=== PATIENT | male | born 1955 | race Caucasian/White ===

== ENCOUNTER → 2018-11-17 08:44 | Outpatient (CLI) | payer OTHER, SELFPAY ==
[2018-11-17 09:59] LABS: Cholesterol 175 mg/dL (140-199); Glucose 97 mg/dL (80-110); HDL Cholesterol 53 mg/dL (40-60); LDL Cholesterol Calculated 112 mg/dL (<100); Triglycerides 49 mg/dL (35-150)
[2018-11-17 10:28] LABS: Prostate Specific Antigen Scrn 0.399 ng/mL (0.1-4.0)
[2018-11-17 10:58] LABS: Hep C Virus Ab w/Reflex Quant NEGATIVE s/c (NEGATIVE)
== END ==
PROVIDERS: PCP Internal Medicine; Visit Provider Internal Medicine
DX: Z00.01 Encounter for general adult medical examination with abnormal findings (principal)
CPT/HCPCS: 36415; 80061; 82947; 86803; G0103

== ENCOUNTER → 2023-04-29 11:31 | Outpatient (CLI) | payer MEDICARE, SELFPAY ==
--- NOTE | 2023-04-29 11:38 | DI.US.S_ITS ---
PROCEDURE: US PERIPH VENOUS LOW EXTREM LT INDICATIONS: LEFT LOWER EXTREMITY EDEMA, R/O DVT TECHNIQUE: Real-time imaging, as well as color and pulse Doppler interrogation, were performed of the lower extremity deep veins from the inguinal ligament to the popliteal fossa, with documentation of the visualized calf veins. COMPARISON: None. FINDINGS: The common femoral, femoral, popliteal, and the visualized calf veins are normally compressible, and free of intraluminal thrombus. Color and pulse Doppler demonstrate normal phasic intraluminal flow. There is normal augmentation response to distal compression maneuver. Superficial venous thrombosis is seen within the greater saphenous vein from the level of the knee to the level of the ankle, greater than 5 cm from the saphenofemoral junction. IMPRESSION: Superficial venous thrombosis can be seen within the distal greater saphenous vein from the level of the knee to the ankle. No elysia findings of deep venous thrombosis can be seen. Note: Concordant preliminary findings given by the food service team member upon the completion of the examination to Pari Rios PA-C. Dictated by: Joseph De León M.D. on 04/29/2023 at 11:47 Approved by: Joseph De León M.D. on 04/29/2023 at 11:49
== END ==
PROVIDERS: PCP Internal Medicine; Referring Provider Physician Assistant; Visit Provider Physician Assistant
DX: I82.812 Embolism and thrombosis of superficial veins of left lower extremity (principal); M79.89 Other specified soft tissue disorders
CPT/HCPCS: 36415; 80053; 85025; 93971

== ENCOUNTER → 2023-04-29 14:00 | Outpatient (CLI) | payer MEDICARE, SELFPAY ==
[2023-04-29 14:29] LABS: Add Manual Diff / Slide Review NO; Basophils Absolute Auto 0 /uL (0-100); Basophils Percent Auto 0.3 % (0-2); Eosinophils Absolute Auto 200 /uL (0-450); Eosinophils Percent Auto 2.6 % (2-4); Hematocrit 34.5 % (41-53); Hemoglobin 11.7 g/dL (13.5-17.5); Lymphocytes Absolute Auto 1400 /uL (1100-4500); Lymphocytes Percent Auto 20.3 % (25-40); Mean Corpuscular HGB Conc 33.9 % (30-36); Mean Corpuscular Hemoglobin 33.1 PG (26-34); Mean Corpuscular Volume 97.6 fL (80-100); Monocytes Absolute Auto 800 /uL (0-900); Monocytes Percent Auto 11.2 % (3-14); Neutrophils Absolute Auto 4600 /uL (1500-7000); Neutrophils Percent Auto 65.6 % (50-75); Platelet Count 269 X10^3/uL (150-400); Red Blood Cell Count 3.53 X10^6/uL (4.5-5.9); Red Cell Distribution Width 12.2 % (11.6-14.8)
[2023-04-29 14:41] LABS: Alanine Aminotransferase 31 IU/L (<50); Albumin Globulin Ratio 1.3 (1.0-2.8); Alkaline Phosphatase 62 U/L (38-126); Aspartate Aminotransferase 29 IU/L (17-59); BUN Creatinine Ratio 16.9 (6-22); Bilirubin Total 0.5 mg/dL (0.2-1.3); Blood Urea Nitrogen 13 mg/dL (9-20); Carbon Dioxide 26 mmol/L (22-32); Chloride 105 mmol/L (98-107); Estimated Glomerular Filt Rate > 60 mL/min (>60); Globulin 3.2 g/dL (1.7-4.1); Glucose 93 mg/dL (80-110); HEMOLYSIS < 15 (0-50); Potassium 4.5 mmol/L (3.4-5.1); Sodium 140 mmol/L (137-145); Total Protein 7.2 g/dL (6.3-8.2)
== END ==
PROVIDERS: PCP Student in an Organized Health Care Education/Training Program; Referring Provider Physician Assistant; Visit Provider Physician Assistant
DX: I82.812 Embolism and thrombosis of superficial veins of left lower extremity (principal)
CPT/HCPCS: 36415; 80053; 85025

== ENCOUNTER → 2023-07-04 12:33 | Outpatient (CLI) | payer OTHER, SELFPAY ==
--- NOTE | 2023-07-04 12:34 | DI.ECHO.S_ITS ---
[place] [facility]---------+ [facility] +---------+ : : [address] : : : : [id number] : : : : Phone: [phone]+ Echocardiogram Report + + :Name: JACKI AMAYA Study Date: 07/04/2023 Height: 72 in : :[facility] ReadingLocation: Weight: 198 lb : : Gender: Male BSA: 2.1 m2 : :: 1955 Age: 68 yrs BP: 124/75 mmHg: :Reason For Study: MURMUR, EVAL AND TREAT : :Ordering Physician: DEVON, : :LEENA Performed By: Giovana Johnson : :Referring: LEENA OSORIO : + + Interpretation Summary The left ventricle is normal in size and wall thickness. The left ventricular ejection fraction is normal. The ejection fraction is estimated to be 60-65%. The right ventricle is at the upper limits of normal in size. The right ventricular systolic function is normal. No significant valvular pathology seen. The IVC is of normal diameter and collapses greater than 50% with a sniff. This suggests a low right atrial pressure of 3 mm Hg. Procedure: A two-dimensional transthoracic echocardiogram with color flow and Doppler was performed. The study quality was technically adequate. There is no prior echocardiogram noted for this patient. The patient was in sinus rhythm with heart rates between 62-66 bpm during the exam. Left Ventricle: The left ventricle is normal in size and wall thickness. There is no thrombus. The ejection fraction is estimated to be 60-65%. The left ventricular ejection fraction is normal. There are no focal wall motion abnormalities. Diastolic parameters suggest a relaxation abnormality of the left ventricle, consistent with probable normal filling pressures. Right Ventricle: The right ventricle is at the upper limits of normal in size. The right ventricular systolic function is normal. Atria: The left atrium is mildly dilated. Right atrial size is normal. There is no Doppler evidence for an interatrial shunt. Mitral Valve: The mitral valve is normal in structure and function. There is trace mitral regurgitation. Aortic Valve: The aortic valve is trileaflet. The aortic valve opens well. There is no aortic valve stenosis. No aortic regurgitation is present. Tricuspid Valve: The tricuspid valve is normal in structure and function. There is trace tricuspid regurgitation. The right ventricular systolic pressure is estimated to be at least 25 mmHg based on an estimated right atrial pressure of 3 mm Hg. Pulmonic Valve: The pulmonic valve leaflets are thin and pliable; valve motion is normal. There is mild pulmonic regurgitation. Great Vessels: The aortic root is normal size. The ascending aorta is at the upper limits of normal in size. The IVC is of normal diameter and collapses greater than 50% with a sniff. This suggests a low right atrial pressure of 3 mm Hg. Pericardium/ Pleura There is no pericardial effusion. There is no pleural effusion. MMode/2D Measurements & Calculations LVIDd: 5.6 cm LVOT diam: 2.3 cm LVIDs: 3.7 cm Ao root diam: 3.9 cm FS: 32.7 % asc Aorta Diam: 4.0 cm EPSS: 1.2 cm Ao Arch Diam (Prox Trans): 2.9 cm IVSd: 0.94 cm LVPWd: 0.82 cm LV white. diameter/BSA (cm/m^2): 2.6 LV sys. diameter/BSA (cm/m^2): 1.8 LA A2 area: 25.0 cm2 RA long axis: 5.8 cm LA A4 area: 22.3 cm2 RA area: 21.6 cm2 LA length (vol): 5.7 cm RA vol: 68.1 ml LA vol: 83.5 ml RA : 32.1 ml/m2 LA vol index: 39.4 ml/m2 IVC diam: 1.5 cm RVD1 (basal): 4.1 cm RVD2 (mid): 3.2 cm TAPSE: 2.2 cm Doppler Measurements & Calculations Ao V2 max: 139.7 cm/sec LVOT Max Percy: 91.9 cm/sec Ao V2 mean: 103.1 cm/sec LV V1 max P.4 mmHg Ao max P.8 mmHg LV V1 VTI: 20.5 cm Ao mean P.6 mmHg SUKHI(I,D): 2.7 cm2 Ao V2 VTI: 32.2 cm SUKHI(V,D): 2.8 cm2 sev ratio: 0.64 SUKHI indexed to BSA (cm^2/m^2): 1.3 MV E max percy: 75.0 cm/sec TR max percy: 235.5 cm/sec MV A max percy: 85.3 cm/sec TR max P.2 mmHg MV E/A: 0.88 PA V2 max: 107.6 cm/sec Med Peak E' Percy: 10.0 cm/sec PA V2 mean: 77.9 cm/sec E/E' med: 7.5 PA mean P.6 mmHg Lat Peak E' Percy: 11.2 cm/sec PA pr(Accel): 39.6 mmHg E/E' lat: 6.7 E/e' average: 7.1 MV dec time: 0.30 sec SV(LVOT): 86.6 ml Reading Physician:02:12 PM
== END ==
PROVIDERS: PCP Student in an Organized Health Care Education/Training Program; Referring Provider Student in an Organized Health Care Education/Training Program; Visit Provider Student in an Organized Health Care Education/Training Program
DX: I37.1 Nonrheumatic pulmonary valve insufficiency (principal); I48.91 Unspecified atrial fibrillation
CPT/HCPCS: 93306

== ENCOUNTER → 2023-07-08 09:35 | Outpatient (CLI) | payer OTHER, SELFPAY | PROVIDERS: PCP Student in an Organized Health Care Education/Training Program; Referring Provider Student in an Organized Health Care Education/Training Program; Visit Provider Student in an Organized Health Care Education/Training Program | DX: I48.91 Unspecified atrial fibrillation (principal); I48.92 Unspecified atrial flutter | CPT/HCPCS: 93246 ==